=== PATIENT | male | born 1960 | race Caucasian/White ===

== ENCOUNTER 2017-12-11 07:48 | Day surgery (SDC) | payer BC ==
[2017-12-08 13:40] VITALS: BMI 26.6
[~2017-12-11 07:48] MED LIST: LACTATED RINGERS 1,000 ML IV SCH
[2017-12-11] MEDS ORDERED: LIDOCAINE 1% 20 ML VIAL (10MG/ML) FOR IV START INTRADERMA ONE (08:11)
[2017-12-11 08:17] VITALS: TEMP 97.6
[2017-12-11] MEDS ORDERED: PROPOFOL 10 MG/ML 20 ML VIAL IV ONE (08:34)
--- NOTE | 2017-12-11 08:40 | P.GSHP ---
History of Present Illness H&P Date: 12/11/17 Chief Complaint: History of colon polyps This is a 57-year-old male referred from Dr. Knowles. Patient presents today for colonoscopy. He's had issues with colonic polyps. His last colonoscopy was over 3 years ago. Past Medical History Past Medical History: Osteoarthritis (OA) History of Any Multi-Drug Resistant Organisms: None Reported Past Surgical History: Appendectomy, Orthopedic Surgery Additional Past Surgical History / Comment(s): bladder tumor removed, varicocele ,ORIF left shoulder Past Anesthesia/Blood Transfusion Reactions: No Reported Reaction Smoking Status: Current every day smoker - Past Family History Mother Family Medical History: Cancer Medications and Allergies Home Medications Medication Instructions Recorded Confirmed Type HYDROcodone/APAP 10-325MG [[place] 1 tab PO Q6HR PRN 12/08/17 12/08/17 History 10-325] Allergies Allergy/AdvReac Type Severity Reaction Status Date / Time No Known Allergies Allergy Verified 12/11/17 08:08 Surgical - Exam Vital Signs Temp Pulse Resp BP Pulse Ox 97.6 F 83 18 147/82 98 12/11/17 08:15 12/11/17 08:15 12/11/17 08:15 12/11/17 08:15 12/11/17 08:15 - General well developed, no distress - Eyes PERRL - ENT normal pinna - Neck no masses - Respiratory normal expansion - Cardiovascular Rhythm: regular - Abdomen Abdomen: soft, non tender Assessment and Plan Assessment: History: Polyps. We'll perform colonoscopy.
--- NOTE | 2017-12-11 08:57 | P.OP ---
Date of Procedure: 12/11/17 Preoperative Diagnosis: History of colon polyps Postoperative Diagnosis: Normal colonoscopy Procedure(s) Performed: Colonoscopy Anesthesia: MAC Surgeon: Gasper Villarreal Pathology: none sent Condition: stable Disposition: PACU Description of Procedure: PROCEDURE: The patient was placed on the endoscopy table in the lateral position. Digital rectal examination was performed which revealed no abnormalities. The prostate was symmetrical without nodules. Flexible colonoscope was then placed in the patient's anus and passed throughout the entire colon. The ileocecal valve was visualized. The cecum, ascending, transverse, descending and sigmoid colon were normal. The rectum was normal as well. There were no masses, polyps or diverticula noted in the entire colon. SUMMARY OF FINDINGS: Normal colonoscopy.
[2017-12-11 09:11] VITALS: BP 138/89; PULSE 66; RESP 16
== END 2017-12-11 09:33 | disposition home or self-care (01) ==
LOC: ORWHC2ENDO 07:48
PROVIDERS: ATTEND Surgery
DX: Z86.010 Personal history of colon polyps (principal); M19.90 Unspecified osteoarthritis, unspecified site; F17.200 Nicotine dependence, unspecified, uncomplicated
CPT/HCPCS: 45378; J2704

== ENCOUNTER → 2023-03-10 | Outpatient (CLI) | payer OTHER ==
--- NOTE | 2023-03-10 11:42 | XR ---
EXAMINATION TYPE: XR shoulder limited LT DATE OF EXAM: 03/10/2023 COMPARISON: NONE HISTORY: Pain TECHNIQUE: Three views are submitted. FINDINGS: The osseous structures are intact. There is a postsurgical change across the glenohumeral joint with severe arthropathy. AC joint arthropathy. No acute fracture or dislocation. Nonspecific round lucenc ies involving scapula. IMPRESSION: 1. Postsurgical change involving the glenohumeral joint. Nonspecific rounded lucencies overlying the scapula for which a dedicated CT scan recommended.
--- NOTE | 2023-03-10 11:43 | XR ---
EXAM TYPE: LUMBAR SPINE X RAY SERIES COMPARISON: NONE HISTORY: Pain TECHNIQUE: 4 views are submitted. FINDINGS: Alignment is anatomic. The pedicles are intact. The transverse processes are intact. There is diff use osteopenia with hypertrophic and degenerative changes in the spine. Multilevel facet arthropathy. Vascular calcifications noted. IMPRESSION: 1. Multilevel hypertrophic and degenerative changes of the spine. Suspect multifocal foraminal imping ement lower lumbar spine.
== END | disposition home or self-care (01) ==
LOC: RADXRMAIN 10:41
PROVIDERS: ATTEND Family Medicine
DX: M47.816 Spondylosis without myelopathy or radiculopathy, lumbar region (principal); M25.512 Pain in left shoulder; Z98.890 Other specified postprocedural states
CPT/HCPCS: 72110